=== PATIENT | male | born 1970 | race Caucasian/White ===

== ENCOUNTER 2017-01-31 11:12 | Emergency (ER) | payer MEDICAID, SELFPAY | END 2017-01-31 11:51 | disposition home or self-care (01) | PROVIDERS: Emergency Provider Nurse Practitioner Family; Visit Provider Nurse Practitioner Family | DX: M54.5 Low back pain (principal); G89.29 Other chronic pain; F17.210 Nicotine dependence, cigarettes, uncomplicated | CPT/HCPCS: 99201 ==

== ENCOUNTER 2017-02-08 20:09 | Emergency (ER) | payer MEDICAID, SELFPAY | END 2017-02-08 21:03 | disposition home or self-care (01) | PROVIDERS: Emergency Provider Nurse Practitioner Family; Visit Provider Nurse Practitioner Family | DX: R05 Cough (principal); R04.2 Hemoptysis; F17.210 Nicotine dependence, cigarettes, uncomplicated; M54.9 Dorsalgia, unspecified | CPT/HCPCS: 99201 ==

== ENCOUNTER 2017-03-05 22:23 | Emergency (ER) | payer MEDICAID, SELFPAY ==
[2017-03-05 22:32] VITALS: BP 117/81; PULSE 85; RESP 12; TEMP 37.3; O2SAT 97; BMI 19.5
--- NOTE | 2017-03-05 22:45 | XR_ITS ---
XR ankle LT 2V Ordering Physician: Phill Fields MD Patient Age: 46 years: Male HISTORY: ITS.REASON: pain Pain at the medial aspect of the lower leg and ankle. Injury, fell at work. TECHNIQUE: 3 views left ankle COMPARISON :. Left lower leg from today FINDINGS The left ankle is intact with no good evidence of fracture. The medial and lateral malleolus appear intact. Ankle mortise intact. Posterior malleolus intact. No significant swelling at medial or lateral malleolus. IMPRESSION: Left ankle intact no fracture evident
--- NOTE | 2017-03-05 22:45 | XR_ITS ---
XR tibia fibula LT 2V Ordering Physician: Phill Fields MD Patient Age: 46 years: Male HISTORY: ITS.REASON: pain Pain left lower leg and ankle. Medial aspect of the left lower leg fell at work Ar. TECHNIQUE: 2 view left lower leg COMPARISON :None FINDINGS The tibia and fibula are intact with no fracture evident. On this left lower leg study 2 views of knee are included with no fracture here. Question scant joint effusion suprapatella bursa . 2 views ankle included with no fracture evident IMPRESSION: Negative left lower leg. Tibia and fibula are intact
--- NOTE | 2017-03-05 22:52 | HMH.EDLOEX ---
ED Disposition Clinical Impression: Ankle sprain and strain Disposition: Home, Self-Care Condition on Discharge: Good Instructions: Sprain Additional Instructions: Please alternate Motrin with Tylenol for pain control, using elastic bandage over the affected area, follow-up with orthopedic surgeon listed in these instructions if not better within 2-3 days. Referrals: Patricio Ledesma MD [Staff Physician] - Forms: Work/School Release Time of Disposition: 23:53 - Critical Care Critical Care Time: No Attestation: On , the high probability of a clinically significant, sudden or life threatening deterioration of the following system(s) required my full and direct attention, intervention and personal management. The time I documented below is in addition to time spent performing reported procedures but includes the following listed in this critical care notation. Medical Decision Making - Medical Records Medical records reviewed: Yes: I reviewed the patient's medical records. Vital Signs: 03/05/17 22:32 Temperature 99.2 F Temperature Source Oral Pulse Rate [Left Radial] 85 Respiratory Rate 12 Blood Pressure [Right Arm] 117/81 Blood Pressure Mean [Right Arm] 93 Blood Pressure Source [Right Arm] Automatic Cuff Blood Pressure Position [Right Arm] Sitting 02 Sat by Pulse Oximetry 97 Oxygen Delivery Method Room Air Orders (Tests/Meds): ORDERS Category Date Time Status Ankle XR - Left 2 Views [XR ankle LT 2V] Stat Exams 03/05/17 22:45 Taken XR tibia fibula LT 2V Stat Exams 03/05/17 22:45 Taken - Radiology Data #1 Image(s): Ankle (left ) Image Reviewed: Yes I reviewed the patient's radiology image Preliminary Findings: Normal/NAD #2 Image(s): Tib/Fib (left) Image Reviewed: Yes I reviewed the patient's radiology image Preliminary Findings: Normal/NAD - Rogelio Inquiry Pt receiving controlled substance: No - Reevaluation(s) Time: 23:50 Reevaluation #1: Patient appears in no acute distress, ambulatory, advised to take [id number] NSAIDs, wear a compressive stocking, follow up with ortho if not better. Lower Extremity Injury HPI - General Chief Complaint: Extremity Injury, Lower Stated Complaint: [id number] Injury L Leg Time Seen by Provider: 03/05/17 22:52 Mode of Arrival: Ambulatory Source of Information: Patient Limitations: No Limitations Description of Symptoms (Recalled from ER Triage Doc. by RN): left calf pain after twisting it cleaning stairs, started monday and is getting worse - History of Present Illness MD complaint: leg injury (left) Onset (ago): day(s) (1) Injury: Left: ankle Type of Injury: hyperextension Place: home Severity: mild Severity scale (1-10): 2 Relieving factors: NSAID, cold therapy, immobilization Exacerbating factors: movement Context: other (twisted left ankle) Associated symptoms: snap/pop sensation - Related Data Home Medications Medication Instructions Recorded Confirmed Albuterol Sulfate [Albuterol HFA 1 - 2 puffs IH Q4-6H PRN 03/05/17 03/05/17 Inhaler] Allergies Allergy/AdvReac Type Severity Reaction Status Date / Time No Known Allergies Allergy Verified 03/05/17 22:43 [facility] History I have reviewed the patient's past medical history: Yes Medical History: Denies:: Cancer, Diabetes Mellitus Type 1, Diabetes Mellitus Type 2, MRSA Amputation: No Fractures: No - *Social History Educational Level: Completed GED/General Educational Development Smoking Status: Current every day smoker Tobacco Type: cigarettes # Packs/Day (cigarettes): 1 Alcohol Intake: never - Psychiatric History Expresses thoughts of harming self/others: None Suicide Plan Description: No Plan ROS Obtained: Yes All systems reviewed & no additional complaints - Musculoskeletal Musculoskeletal: Reports as per HPI, Reports joint pain (left ankle pain) Physical Exam - General General appearance: alert, in no apparent distress
== END 2017-03-06 00:15 | disposition home or self-care (01) ==
PROVIDERS: Emergency Provider Emergency Medicine
DX: S93.402A Sprain of unspecified ligament of left ankle, initial encounter (principal); X50.1XXA Overexertion from prolonged static or awkward postures, initial encounter; Y93.E9 Activity, other interior property and clothing maintenance; Y92.019 Unspecified place in single-family (private) house as the place of occurrence of the external cause; F17.210 Nicotine dependence, cigarettes, uncomplicated; F41.8 Other specified anxiety disorders; D64.9 Anemia, unspecified
CPT/HCPCS: 73590; 73600; 99282

== ENCOUNTER 2017-03-27 20:49 | Emergency (ER) | payer MEDICAID, SELFPAY ==
[2017-03-27 20:49] VITALS: BP 129/88; PULSE 87; O2SAT 99
[2017-03-27 20:50] VITALS: BP 129/88; PULSE 98; RESP 16; TEMP 36.8; O2SAT 98; BMI 19.5
--- NOTE | 2017-03-27 20:55 | XR_ITS ---
XR chest portable HISTORY: ITS.REASON: CHEST PAIN ORDERING PHYSICIAN: Jay Davila MD PATIENT AGE: 46 years COMPARISON: None available FINDINGS: The cardiomediastinal silhouette and pulmonary vascularity are within normal limits. The lungs are clear without infiltrates, suspicious nodules, or pleural effusions. There is a 7 mm nodular opacity overlying left midlung zone laterally and may be due to nipple shadow may be confirmed with nipple markers No acute bony abnormalities. IMPRESSION: 1. No acute finding. 2. Possible left sided nipple shadow
[2017-03-27 21:01] VITALS: PULSE 86
[2017-03-27 21:05] LABS: Basophils # 0.1 K/mm3 (0-0.2); Basophils % 0.9 % (0.1-2.0); Eosinophils # 0.3 K/mm3 (0.0-0.4); Eosinophils % 2.6 % (0.1-12.0); Hemoglobin 16.4 g/dL (14.1-18.0); Lymphocytes % 31.3 K/mm3 (10-50); Mean Corpuscular HGB Conc 33.5 g/dL (31.8-35.4); Mean Corpuscular Hemoglobin 31.7 pg (27.0-31.2); Mean Corpuscular Volume 94.7 fl (80-94); Mean Platelet Volume 7.8 fl (7.4-10.4); Monocytes # 0.5 K/mm3 (0.1-1.0); Monocytes % 5.3 % (1.7-9.3); Neutrophils # 5.8 K/mm3 (1.8-7.8); Neutrophils % 59.9 % (37.0-80.0); Platelet Count 285 K/mm3 (142-424); Red Blood Count 5.18 M/mm3 (4.60-6.20); Red Cell Distribution Width 13.4 % (11.5-17.5); White Blood Count 9.7 K/mm3 (4.8-10.8)
[2017-03-27 22:34] LABS: Alanine Aminotransferase 49 U/L (12-78); Albumin/Globulin Ratio 1.3 (1.1-1.8); Alkaline Phosphatase 80 U/L (46-116); Aspartate Amino Transferase 26 U/L (15-37); Bilirubin,Total 0.4 mg/dL (0.2-1.0); Blood Urea Nitrogen 12 mg/dL (7-18); Calcium 9.1 mg/dL (8.5-10.1); Carbon Dioxide 31 mmol/L (21.0-32.0); Chloride 102 mmol/L (98-107); Creatine Kinase 178 U/L (39-308); Creatine Kinase MB 1.7 mg/ml (0.0-3.6); Creatinine Clearance Estimated 76 mL/min (0-300); Creatinine,Serum 0.98 mg/dL (0.70-1.30); Estimated Glomerular Filt Rate 83 ml/min (>60); GFR (African American) 100 ML/MIN (>60); Globulin 3.2 gm/dl (1.3-3.2); Glucose 85 mg/dL (74-106); Sodium 141 mmol/L (136-145); Total Protein,Serum 7.2 gm/dL (6.4-8.2); Troponin I < 0.02 ng/ml (0.00-0.06)
--- NOTE | 2017-03-27 22:43 | HMH.EDCP ---
ED Disposition Clinical Impression: Chest pain Qualifiers: Chest pain type: unspecified Qualified Code(s): R07.9 - Chest pain, unspecified Disposition: Home, Self-Care Condition on Discharge: Good Instructions: DI for Chest Pain Additional Instructions: see pcp or see card at 0900 - Critical Care Critical Care Time: No Attestation: On 03/27/17, the high probability of a clinically significant, sudden or life threatening deterioration of the following system(s) required my full and direct attention, intervention and personal management. The time I documented below is in addition to time spent performing reported procedures but includes the following listed in this critical care notation. Medical Decision Making - Medical Records Medical records reviewed: Yes: I reviewed the patient's medical records. Vital Signs: 03/27/17 20:49 03/27/17 20:50 03/27/17 21:01 Temperature 98.3 F Temperature Source Oral Pulse Rate 86 Pulse Rate [Right Brachial] 87 98 H Respiratory Rate 16 Blood Pressure [Right Arm] 129/88 129/88 Blood Pressure Mean [Right Arm] 101 101 Blood Pressure Source [Right Arm] Automatic Cuff Automatic Cuff Blood Pressure Position [Right Arm] Supine Sitting 02 Sat by Pulse Oximetry 99 98 Oxygen Delivery Method Room Air Room Air - Lab Data Lab Results 03/27/17 21:00: WBC 9.7, RBC 5.18, Hgb 16.4, Hct 49.0, MCV 94.7 H, MCH 31.7 H, MCHC 33.5, RDW 13.4, Plt Count 285, MPV 7.8, Neut % (Auto) 59.9, Lymph % (Auto) 31.3, [place] % (Auto) 5.3, Eos % (Auto) 2.6, Baso % (Auto) 0.9, Neut # (Auto) 5.8, Lymph # (Auto) 3.0, [place] # (Auto) 0.5, Eos # (Auto) 0.3, Baso # (Auto) 0.1 03/27/17 21:00: Sodium 141, Potassium 4.0, Chloride 102, Carbon Dioxide 31, Anion Gap 12.0, BUN 12, Creatinine 0.98, Estimated Creat Clear 76, Estimated GFR 83, Est GFR ( Amer) 100, Glucose 85, Calcium 9.1, Total Bilirubin 0.4, AST 26, ALT 49, Alkaline Phosphatase 80, Total Creatine Kinase 178, CK-MB (CK-2) 1.7, CK-MB (CK-2) Rel Index 1.0, Troponin I < 0.02, Total Protein 7.2, Albumin 4.0, Globulin 3.2, Albumin/Globulin Ratio 1.3 Result diagrams: 03/27/17 21:00 03/27/17 21:00 Orders (Tests/Meds): ED MEDICATIONS Discontinued Medications Generic Name Dose Route Start Last Admin Trade Name Twyla PRN Reason Stop Dose Admin Aspirin 324 mg 03/27/17 20:56 03/27/17 20:59 Aspirin 81mg Chewable Tablet PO 03/27/17 20:57 324 mg ONCE ONE Administration ORDERS Category Date Time Status Chest XR -- portable [XR chest portable] Stat Exams 03/27/17 20:55 Taken ECG Request by /Mikala Stat Y 03/27/17 20:55 Ordered - Radiology Data #1 Image(s): Chest Image Reviewed: Yes I reviewed the patient's radiology image Preliminary Findings: Abnormal (copd) - ECG Data Tracing #1 I reviewed this ECG and interpreted as documented below: Normal Sinus Rhythm: Yes Ischemic changes: non-specific ST-T wave changes - Rogelio Inquiry Pt receiving controlled substance: No Chest Pain HPI - General Chief Complaint: Chest Pain Stated Complaint: CHEST PAIN Time Seen by Provider: 03/27/17 22:43 Mode of Arrival: Ambulatory Source of Information: Patient, Significant Other, Medical Record Limitations: No Limitations Description of Symptoms (Recalled from ER Triage Doc. by RN): CHEST PAIN WITH SOA - History of Present Illness HPI narrative: chest pain episodes over the last few months with rad to lt upper ext MD complaint: chest pain Onset (ago): week(s) Duration: now resolved Activity at onset: during rest Pain location: substernal Severity: moderate Quality: tightness Pain radiation: LUE Risk Factors for CAD: Family Hx of CAD, Smoking Treatments prior to or on arrival for Cardiac Chest Pain: none - LORETTA Score Non-Stemi Age of patient: Less than 65 yrs Number of risk factors for CAD: Presence of less than 3 Prior coronary artery stenosis(seen in coronary angiography): Less than 50% ST-[facility]
--- NOTE | 2017-03-27 22:49 | ED_ITS ---
ED Disposition Clinical Impression: Chest pain Qualifiers: Chest pain type: unspecified Qualified Code(s): R07.9 - Chest pain, unspecified Disposition: Home, Self-Care Condition on Discharge: Good Instructions: DI for Chest Pain Additional Instructions: see pcp or see card at 0900 - Critical Care Critical Care Time: No Attestation: On 03/27/17, the high probability of a clinically significant, sudden or life threatening deterioration of the following system(s) required my full and direct attention, intervention and personal management. The time I documented below is in addition to time spent performing reported procedures but includes the following listed in this critical care notation. Medical Decision Making - Medical Records Medical records reviewed: Yes: I reviewed the patient's medical records. Vital Signs: 03/27/17 20:49 03/27/17 20:50 03/27/17 21:01 Temperature 98.3 F Temperature Source Oral Pulse Rate 86 Pulse Rate [Right Brachial] 87 98 H Respiratory Rate 16 Blood Pressure [Right Arm] 129/88 129/88 Blood Pressure Mean [Right Arm] 101 101 Blood Pressure Source [Right Arm] Automatic Cuff Automatic Cuff Blood Pressure Position [Right Arm] Supine Sitting 02 Sat by Pulse Oximetry 99 98 Oxygen Delivery Method Room Air Room Air - Lab Data Lab Results 03/27/17 21:00: WBC 9.7, RBC 5.18, Hgb 16.4, Hct 49.0, MCV 94.7 H, MCH 31.7 H, MCHC 33.5, RDW 13.4, Plt Count 285, MPV 7.8, Neut % (Auto) 59.9, Lymph % (Auto) 31.3, [place] % (Auto) 5.3, Eos % (Auto) 2.6, Baso % (Auto) 0.9, Neut # (Auto) 5.8 , Lymph # (Auto) 3.0, [place] # (Auto) 0.5, Eos # (Auto) 0.3, Baso # (Auto) 0.1 03/27/17 21:00: Sodium 141, Potassium 4.0, Chloride 102, Carbon Dioxide 31, Anion Gap 12.0, BUN 12, Creatinine 0.98, Estimated Creat Clear 76, Estimated GFR 83, Est GFR ( Amer) 100, Glucose 85, Calcium 9.1, Total Bilirubin 0.4 , AST 26, ALT 49, Alkaline Phosphatase 80, Total Creatine Kinase 178, CK-MB (CK- 2) 1.7, CK-MB (CK-2) Rel Index 1.0, Troponin I < 0.02, Total Protein 7.2, Albumin 4.0, Globulin 3.2, Albumin/Globulin Ratio 1.3 Result diagrams: 03/27/17 21:00 03/27/17 21:00 Orders (Tests/Meds): ED MEDICATIONS Discontinued Medications Generic Name Dose Route Start Last Admin Trade Name Twyla PRN Reason Stop Dose Admin Aspirin 324 mg 03/27/17 20:56 03/27/17 20:59 Aspirin 81mg Chewable Tablet PO 03/27/17 20:57 324 mg ONCE ONE Administration ORDERS Category Date Time Status Chest XR -- portable [XR chest portable] Stat Exams 03/27/17 20:55 Taken ECG Request by /Mikala Stat Y 03/27/17 20:55 Ordered - Radiology Data #1 Image(s): Chest Image Reviewed: Yes I reviewed the patient's radiology image Preliminary Findings: Abnormal (copd) - ECG Data Tracing #1 I reviewed this ECG and interpreted as documented below: Normal Sinus Rhythm: Yes Ischemic changes: non-specific ST-T wave changes - Rogelio Inquiry Pt receiving controlled substance: No Chest Pain HPI - General Chief Complaint: Chest Pain Stated Complaint: CHEST PAIN Time Seen by Provider: 03/27/17 22:43 Mode of Arrival: Ambulatory Source of Information: Patient, Significant Other, Medical Record Limitations: No Limitations Description of Symptoms (Recalled from ER Triage Doc. by RN): CHEST PAIN WIT
[2017-03-27 23:15] VITALS: BP 143/88; PULSE 71; RESP 16; TEMP 37.2; O2SAT 99
== END 2017-03-27 23:26 | disposition home or self-care (01) ==
PROVIDERS: Emergency Provider Emergency Medicine
DX: R07.9 Chest pain, unspecified (principal); R06.02 Shortness of breath; F17.210 Nicotine dependence, cigarettes, uncomplicated
CPT/HCPCS: 71045; 80053; 82550; 82553; 84484; 85025; 93005; 93041; 99284

== ENCOUNTER 2017-04-12 11:25 | Emergency (ER) | payer MEDICAID, SELFPAY ==
[2017-04-12 11:42] VITALS: BP 106/76; PULSE 90; RESP 20; TEMP 37.1; O2SAT 99; BMI 20.7
--- NOTE | 2017-04-12 11:59 | HMH.EDUTC ---
[facility] [place] Clinical Impression: Dizziness Disposition: Home, Self-Care Condition on Discharge: Good Instructions: DI for Dizziness-Nonvertigo Additional Instructions: Follow up with family doctor for further treatment and evaluation Go straight to family doctor or ER if you continue to have these eppisodes Return if needed Make sure to eat at least 5 small meals a day with snacks Forms: Work/School Release Time of Disposition: 12:10 Medical Decision Making - Medical Records Medical records reviewed: Yes: I reviewed the patient's medical records. Vital Signs: 04/12/17 11:42 04/12/17 12:30 Temperature 98.8 F 98.7 F Temperature Source Temporal Artery Scan Pulse Rate 82 Pulse Rate [Right] 90 Respiratory Rate 20 18 Blood Pressure 110/77 Blood Pressure [Right Arm] 106/76 Blood Pressure Mean [Right Arm] 86 Blood Pressure Position [Right Arm] Sitting 02 Sat by Pulse Oximetry 99 Oxygen Delivery Method Room Air - Lab Data Lab results reviewed: Yes: I reviewed the patient's lab results. Lab Results 04/12/17 11:50: Glucose Fingerstick 94 04/12/17 11:54: POC Glucose 94 04/12/17 12:13: Influenza Type A Ag Negative, Influenza Type B Ag Negative - Rogelio Inquiry Pt receiving controlled substance: No Rogelio was queried for this patient: No - Reevaluation(s) Time: 12:02 Reevaluation #1: Patient state that he is no longer feeling dizzy or sweating State that he feels much better FSBS completed 94 Patient advised that he needed to get family doctor and have a through work up Advised him that he may want to make sure that he eats at least 3-5 meals a day with snacks and make sure to keep some candy or other snacks with him until seen by family doctor [facility] [place] - General Stated complaint: weak Mode of Arrival: Ambulatory Source of Information: Patient Limitations: No Limitations Description of Symptoms (Recalled from Triage Doc. by RN): WEAKNESS, LIGHTHEADED TODAY HEENT Symptoms (Recalled from RN notes): No Resp Symptoms (Recalled from RN notes): No Skin Symptoms (Recalled from RN notes): No MS Symptoms (Recalled from RN notes): No Functional Status (Recalled from RN notes): N - History of Present Illness Provider Complaint: Patient state that earlier today he had not eaten yet and he felt a little light headed and got dizzy State that he felt better after he eat something. State that he did this many years ago and the doctor told him that his blood sugar may be dropping so when he did it today he eat something and he felt better then he came in States that he feels much better now after eating and drinking something - Related Data Home Medications Medication Instructions Recorded Confirmed Albuterol Sulfate [Albuterol HFA 1 - 2 puffs IH Q4-6H PRN 03/05/17 03/05/17 Inhaler] Allergies Allergy/AdvReac Type Severity Reaction Status Date / Time No Known Allergies Allergy Verified 03/05/17 22:43 - Worker's Comp Is this a Worker's Comp case?: No [facility] History I have reviewed the patient's past medical history: Yes Medical History: Denies:: Cancer, Diabetes Mellitus Type 1, Diabetes Mellitus Type 2, MRSA Amputation: No Fractures: No - Social History Smoking Status: Current every day smoker Tobacco Type: cigarettes # Packs/Day (cigarettes): 1 Alcohol Intake: never - Psychiatric History Expresses thoughts of harming self/others: None Suicide Plan Description: No Plan ROS Obtained: Yes All systems reviewed & no additional complaints - Constitutional Constitutional: Reports weakness - Cardiovascular Cardiovascular: Denies chest pain - Respiratory Respiratory: No dyspnea - Neurologic Neurologic: Reports dizziness Physical Exam - General General appearance: alert, in no apparent distress - ENT ENT exam: Present: normal exam, normal oropharynx, mucous membranes moist, TM's normal bilaterally, normal external ear exam - Chest Chest inspect
[2017-04-12 12:02] LABS: POC Glucose,Bedside 94 mg/dL (70-110)
--- NOTE | 2017-04-12 12:02 | ED_ITS ---
[facility] [place] Dis[place] Clinical Impression: Dizziness Disposition: Home, Self-Care Condition on Discharge: Good Instructions: DI for Dizziness-Nonvertigo Additional Instructions: Follow up with family doctor for further treatment and evaluation Go straight to family doctor or ER if you continue to have these eppisodes Return if needed Make sure to eat at least 5 small meals a day with snacks Forms: Work/School Release Time of Disposition: 12:10 Medical Decision Making - Medical Records Medical records reviewed: Yes: I reviewed the patient's medical records. Vital Signs: 04/12/17 11:42 04/12/17 12:30 Temperature 98.8 F 98.7 F Temperature Source Temporal Artery Scan Pulse Rate 82 Pulse Rate [Right] 90 Respiratory Rate 20 18 Blood Pressure 110/77 Blood Pressure [Right Arm] 106/76 Blood Pressure Mean [Right Arm] 86 Blood Pressure Position [Right Arm] Sitting 02 Sat by Pulse Oximetry 99 Oxygen Delivery Method Room Air - Lab Data Lab results reviewed: Yes: I reviewed the patient's lab results. Lab Results 04/12/17 11:50: Glucose Fingerstick 94 04/12/17 11:54: POC Glucose 94 04/12/17 12:13: Influenza Type A Ag Negative, Influenza Type B Ag Negative - Rogelio Inquiry Pt receiving controlled substance: No Rogelio was queried for this patient: No - Reevaluation(s) Time: 12:02 Reevaluation #1: Patient state that he is no longer feeling dizzy or sweating State that he feels much better FSBS completed 94 Patient advised that he needed to get family doctor and have a through work up Advised him that he may want to make sure that he eats at least 3-5 meals a day with snacks and make sure to keep some candy or other snacks with him until seen by family doctor [facility] [place] HPI - General Stated complaint: weak Mode of Arrival: Ambulatory Source of Information: Patient Limitations: No Limitations Description of Symptoms (Recalled from Triage Doc. by RN): WEAKNESS, LIGHTHEADED TODAY HEENT Symptoms (Recalled from RN notes): No Resp Symptoms (Recalled from RN notes): No Skin Symptoms (Recalled from RN notes): No MS Symptoms (Recalled from RN notes): No Functional Status (Recalled from RN notes): N - History of Present Illness Provider Complaint: Patient state that earlier today he had not eaten yet and he felt a little light headed and got dizzy State that he felt better after he eat something. State that he did this many years ago and the doctor told him that his blood sugar may be dropping so when he did it today he eat something and he felt better then he came in States that he feels much better now after eating and drinking something - Related Data Home Medications Medication Instructions Recorded Confirmed Albuterol Sulfate [Albuterol HFA 1 - 2 puffs IH Q4-6H PRN 03/05/17 03/05/17 Inhaler] Allergies Allergy/AdvReac Type Severity Reaction Status Date / Time No Known Allergies Allergy Verified 03/05/17 22:43 - Worker's Comp Is this a Worker's Comp case?: No [facility] History I have reviewed the patient's past medical history: Yes Medical History: Denies:: Cancer, Diabetes Mellitus Type 1, Diabetes Mellitus Type 2, MRSA Amputation: No Fractures: No - Social History Smoking Status: Current every day smoker Tobacco Type: cigarettes # Packs/Day (cigarettes): 1 Alcohol Intak
[2017-04-12 12:14] LABS: UTC Influenza A Antigen Negative (Negative); UTC Influenza B Antigen Negative (Negative)
[2017-04-12 12:30] VITALS: BP 110/77; PULSE 82; RESP 18; TEMP 37.1
== END 2017-04-12 13:30 | disposition home or self-care (01) ==
PROVIDERS: Emergency Provider Nurse Practitioner
DX: R42 Dizziness and giddiness (principal)
CPT/HCPCS: 82962; 87804; 99202

== ENCOUNTER → 2017-04-17 15:33 | Outpatient (CLI) | payer MEDICAID, SELFPAY ==
--- NOTE | 2017-04-17 16:09 | XR_ITS ---
XR lumbar spine 2-3V Ordering Physician: Rhonda Masterson Patient Age: 46 years: Male HISTORY: ITS.REASON: back pain Back pain for years lower back no acute injury. TECHNIQUE: 3 lumbar spine series. AP lateral and spot view COMPARISON :No previous relevant studies FINDINGS At L5/S1 the lumbar vertebral bodies are intact no compression fractures. Normal alignment. The disc spaces are actually fairly well maintained with only borderline narrowing at L1/2. This levels. L3/4, L4/5 L5/S1 appear adequate & well maintained. Early marginal osteophyte formation at L 4/5 noted.. Only question some early minimal facet arthropathy the latter is better visualized on oblique views. SI joints appear intact and unremarkable. Pedicles intact. IMPRESSION:: 1. Lumbar spine intact.. Normal alignment 2. Vertebral bodies intact with disc spaces adequate maintained.. Only borderline narrowing L1/2 disc space
[2017-04-17 18:38] LABS: Basophils % 0.5 % (0.1-2.0); Eosinophils # 0.2 K/mm3 (0.0-0.4); Eosinophils % 1.9 % (0.1-12.0); Hemoglobin 15.7 g/dL (14.1-18.0); Lymphocytes # 2.4 K/mm3 (0.7-4.5); Lymphocytes % 27.8 K/mm3 (10-50); Mean Corpuscular HGB Conc 32.8 g/dL (31.8-35.4); Mean Corpuscular Hemoglobin 32.2 pg (27.0-31.2); Mean Platelet Volume 9.3 fl (7.4-10.4); Monocytes # 0.4 K/mm3 (0.1-1.0); Monocytes % 4.8 % (1.7-9.3); Neutrophils # 5.6 K/mm3 (1.8-7.8); Platelet Count 297 K/mm3 (142-424); Red Blood Count 4.89 M/mm3 (4.60-6.20); Red Cell Distribution Width 13.4 % (11.5-17.5); White Blood Count 8.6 K/mm3 (4.8-10.8)
[2017-04-17 18:40] LABS: Alanine Aminotransferase 56 U/L (12-78); Albumin/Globulin Ratio 1.5 (1.1-1.8); Alkaline Phosphatase 86 U/L (46-116); Anion Gap 13.2 mEq/L (5-15); Aspartate Amino Transferase 34 U/L (15-37); Bilirubin,Total 0.3 mg/dL (0.2-1.0); Blood Urea Nitrogen 11 mg/dL (7-18); Calcium 8.9 mg/dL (8.5-10.1); Carbon Dioxide 26 mmol/L (21.0-32.0); Chloride 102 mmol/L (98-107); Cholesterol 159 mg/dL (140-200); Creatinine,Serum 0.88 mg/dL (0.70-1.30); Estimated Glomerular Filt Rate 94 ml/min (>60); Free T4 (Free Thyroxine) 1.05 ng/dl (0.76-1.46); GFR (African American) 113 ML/MIN (>60); Globulin 2.7 gm/dl (1.3-3.2); Glucose 112 mg/dL (74-106); HDL Cholesterol 40 mg/dL (27-67); LDL Cholesterol 92 mg/dL (0-130); Potassium 4.2 mmoL/L (3.5-5.1); Sodium 137 mmol/L (136-145); Thyroid Stimulating Hormone 0.89 uIU/ml (0.358-3.740); Total Protein,Serum 6.7 gm/dL (6.4-8.2); Triglycerides 133 mg/dL (30-200); VLDL Cholesterol 27 mg/dL (0-40)
[2017-04-17 19:31] LABS: Hemoglobin A1C 5.3 % (0.0-7.0)
[2017-04-20 11:59] LABS: Vitamin D 25 Hydroxy 31.8 ng/mL (30.0-100.0)
== END ==
PROVIDERS: PCP Nurse Practitioner Family; Visit Provider Nurse Practitioner Family
DX: R53.83 Other fatigue (principal); M54.5 Low back pain; R42 Dizziness and giddiness
CPT/HCPCS: 72100; 80053; 80061; 82652; 83036; 84439; 84443; 85025; 93005; 93225; 93226